=== PATIENT | female | born 1995 | race Two or more races ===

== ENCOUNTER 2018-03-08 21:00 | Inpatient (IN) | payer BC ==
--- NOTE | 2018-03-08 11:09 | PDOC.LDHP ---
Labor and Delivery H&P Chief complaint: scheduled induction HPI: 22 yo G1 @ 40w1d by 11 week CRL who presents for EIOL. achieved with Femara, otherwise, benign antepartum course. Current gestational age (weeks): 40 Due date: 03/08/18 Dating criteria: first trimester ultrasound Grav: 1 Para: 0 Current complications: none Abnormal US findings: No Past Medical History: Denies Current medications: pre- vitamins Previous surgical history: none Allergies/Adverse Reactions: Allergies Allergy/AdvReac Type Severity Reaction Status Date / Time No Known Allergies Allergy Unverified 03/09/18 02:12 Social history: none - Physical Exam Vital signs reviewed and normal: yes General: NAD Heart: RRR Lungs: nonlabored breathing Abdomen: gravid Extremeties: no edema FHT: category 1 (130s, mod denilson, +accels, no decels) [place] contractions every: q1-5 min - Vaginal Exam cm dilated: 2 (cephalic; Cook balloon placed 60/60 cc) Effacement: 50% Station: -2 - OB Labs Blood type: A RH: positive Antibody Screen: negative HIV: negative RPR: negative HEPSAg: negative 1 hour GCT: negative GBS: negative Urine drug screen: not done Rubella: immune Additional Labs: SS wnl PAP wnl - Assessment L&D Assessment: elective induction at term - Plan Plan: admit to L&D, cervical ripening (s/p cytotec x 1, cook balloon placed and will start low dose pitocin.), informed consent obtained, anesthesia consult for pain management
[2018-03-09 02:19] VITALS: BMI 27.8
[2018-03-09] MEDS ORDERED: Acetaminophen 500 MG TAB PO PRN (02:19)
[2018-03-09] MEDS ORDERED: Ondansetron PF 4 MG/2 ML Vial IVP PRN ×3 (02:19→14:51)
[2018-03-09] MEDS ORDERED: Butorphanol Tartrate 1 MG/ML VIAL SLOW IVP PRN (02:19)
[2018-03-09] MEDS ORDERED: HYDROcodone/Acetaminophen 5/325 mg Tablet PO PRN ×5 (02:19→22:46)
[2018-03-09] MEDS ORDERED: Misoprostol 200 MCG TAB PR PRN (02:19)
[2018-03-09] MEDS ORDERED: Lidocaine 1% (PF) 30 ML VIAL SC PRN (02:19)
[2018-03-09] MEDS ORDERED: NS / Oxytocin 40 units/1000ml 1,000 ML IV PRN (02:19)
[2018-03-09] MEDS ORDERED: Promethazine HCl 25 MG/ML VIAL IM PRN ×3 (02:19→14:51)
[2018-03-09] MEDS ORDERED: Diphenoxylate HCl/Atropine Tablet PO PRN (02:19)
[2018-03-09] MEDS ORDERED: Ibuprofen 800 MG TAB PO PRN (02:19)
[2018-03-09] MEDS ORDERED: Carboprost 250 MCG/ML AMP IM PRN (02:19)
[2018-03-09] MEDS ORDERED: Methylergonovine 0.2 MG/ML VIAL IM PRN (02:19)
[2018-03-09] MEDS: Lactated Ringer's 1,000 ML IV SCH ×3 (02:46→17:30)
[2018-03-09 02:49] LABS: Hemoglobin 12.1 g/dL (12.0-16.0); Mean Corpuscular HGB CONC 33.7 g/dL (32.0-36.0); Mean Corpuscular Hemoglobin 28.6 pg (27.0-31.0); Mean Corpuscular Volume 84.6 fL (78.0-98.0); Mean Platelet Volume 8.6 fL (7.4-10.4); Platelet Count 214 thou/uL (130-400); RBC Distribution Width 12.5 % (11.5-14.5); Red Blood Cell (RBC) Count 4.23 mill/uL (4.20-5.40); White Blood Cell (WBC) Count 8.7 thou/uL (4.8-10.8)
[2018-03-09] MEDS: Misoprostol 100 MCG TAB VAG SCH ×8 (02:52→23:52)
[2018-03-09 03:27] LABS: HBSAg Index 0.21 S/CO (0-0.99); HIV (1/2) Antibody/Antigen Non-Reactive (NonReactive); HIV 1/2 INDEX 0.14 S/CO (<1.00); Hep B Surf Ag Non-Reactive S/CO (NonReactive)
[2018-03-09 04:58] LABS: Syphilis Antibody Nonreactive (Nonreactive); Syphilis Antibody Index 0.04 S/CO (<1.00 Non-Reactive)
[2018-03-09] MEDS ORDERED: NS w/ Oxytocin 10 units 500 ML IV SCH (06:00)
[2018-03-09] MEDS ORDERED: Methylergonovine 0.2 MG/ML VIAL ONE (13:03)
[2018-03-09] MEDS ORDERED: CEFAZOLIN 1 GM VIAL ONE (13:10)
[2018-03-09 13:16] LABS: Analyzer IN Cardio OR; Base Excess (BEa) -10.3 mEq/L (-2.0 to +3.0)
[2018-03-09] MEDS ORDERED: Azithromycin 500 MG in Sodium Chloride 0.9% 250 ML 250 ML IVPB SCH (13:30)
[2018-03-09] MEDS ORDERED: Fentanyl 100 MCG/2 ML VIAL ONE ×2 (13:31→13:52)
--- NOTE | 2018-03-09 13:34 | PDOC.OPDEL ---
OB Operative/Delivery Note Delivery Dr/Surgeon: Mildred Escoto DO Pre-Delivery Diagnosis: elective induction Procedure/Post Delivery Dx: primary low transverse CS (STAT) Weeks gestation: 40 Anesthesia: other (general) - Findings A Sex: male - 1 min: 9 - 5 min: 9 - Additional Findings/Plan Placenta delivered: spontaneous findings: low transverse hysterotomy with extension, normal uterus, normal tubes, normal ovaries Estimated blood loss: QBL 624 mL Compilations/Other Findings: Cord prolapse after AROM requiring emergent PLTCS in cephalic presentation, OP position. Normal appearing placenta Clear amniotic fluid Immediate cry up delivery of infant Uterine atony after delivery due to general anesthesia, resolved with pitocin and methergine. Post delivery plan: routine recovery
[2018-03-09] MEDS ORDERED: Naloxone HCl 0.4 mg/ml Vial IV PRN ×2 (14:29→14:51)
[2018-03-09] MEDS ORDERED: fentaNYL Citrate/PF 2,000 MCG in Sodium Chloride 0.9% 60 ML IV PRN ×2 (14:29→14:51)
[2018-03-09] MEDS ORDERED: diphenhydrAMINE 50 MG/ML VIAL IM/IV PRN (14:29)
[2018-03-09] MEDS ORDERED: Zolpidem Tartrate 5 MG TAB PO PRN ×2 (14:29→14:51)
[2018-03-09] MEDS ORDERED: diphenhydrAMINE 25 MG CAP PO PRN ×3 (14:29→14:51)
[2018-03-09] MEDS ORDERED: Bisacodyl 10 MG SUPP PR PRN (14:42)
[2018-03-09] MEDS ORDERED: Ibuprofen 800 MG TAB PO SCH ×2 (14:42→15:15)
[2018-03-09] MEDS ORDERED: Ondansetron HCl/PF 4 MG/2 ML Vial IVP PRN (14:51)
[2018-03-09] MEDS ORDERED: HYDROmorphone 2 MG/ML VIAL SLOW IVP PRN (14:51)
[2018-03-09] MEDS ORDERED: Meperidine HCl/PF 25 MG/ML VIAL SLOW IVP PRN (14:51)
[2018-03-09] MEDS ORDERED: L&D-Morphine 4 MG/ML VIAL SLOW IVP PRN (14:51)
[2018-03-09] MEDS ORDERED: diphenhydrAMINE 50 MG/ML VIAL IVP PRN (14:51)
[2018-03-09] MEDS ORDERED: diphenhydrAMINE 50 MG/ML VIAL IM PRN (14:51)
[2018-03-09] MEDS ORDERED: Ketorolac Tromethamine 30 MG/ML VIAL IVP SCH ×2 (15:00→18:35)
[2018-03-09] MEDS ORDERED: Communication Order-Pharmacy FS SCH (15:00)
[2018-03-09] MEDS ORDERED: PROPOFOL 200 MG/20 ML VIAL ONE (15:02)
[2018-03-09] MEDS ORDERED: Succinylcholine Chloride 20 MG/ML 10 ml SYRINGE FS ONE (15:02)
[2018-03-09 16:28] LABS: #Eosinphils 0.1 thou/uL (0.0-0.7); #Lymphocytes 1.4 thou/uL (1.20-3.40); #Monocytes 0.6 thou/uL (0.11-0.59); #Neutrophils 14.7 thou/uL (1.40-6.50); %Basophils 0.1 % (0.0-1.0); %Eosinophils 0.3 % (0.0-10.0); %Lymphocytes 8.2 % (21.0-51.0); %Monocytes 3.6 % (0.0-10.0); %Neutrophils 87.8 % (42.0-75.0); Hemoglobin 12.4 g/dL (12.0-16.0); Mean Corpuscular Hemoglobin 29.1 pg (27.0-31.0); Mean Corpuscular Volume 85.6 fL (78.0-98.0); Mean Platelet Volume 8.7 fL (7.4-10.4); Platelet Count 189 thou/uL (130-400); RBC Distribution Width 12.6 % (11.5-14.5); Red Blood Cell (RBC) Count 4.25 mill/uL (4.20-5.40); White Blood Cell (WBC) Count 16.8 thou/uL (4.8-10.8)
[2018-03-09] MEDS ORDERED: Ketorolac Tromethamine 30 MG/ML VIAL ONE (17:13)
[2018-03-09] MEDS ORDERED: Fentanyl 100 MCG/2 ML VIAL SLOW IVP SCH (18:35)
[2018-03-09] MEDS: Ferrous Sulfate 325 MG TAB PO SCH (21:47)
[2018-03-09] MEDS: Ibuprofen 800 MG TAB PO SCH (23:52)
[2018-03-09] MEDS: Docusate Calcium (SURFAK) 240 MG CAP PO SCH (23:52)
--- NOTE | 2018-03-10 02:03 | OP ---
DATE OF PROCEDURE: 03/09/2018 PREOPERATIVE DIAGNOSES: 1. 40-week 1-day intrauterine . 2. Elective induction. 3. Cord prolapse. POSTOPERATIVE DIAGNOSES: 1. 40-week 1-day intrauterine . 2. Elective induction. 3. Cord prolapse. PROCEDURE PERFORMED: Emergent primary low transverse delivery. SURGEON: Mildred Escoto DO INSPECTOR GOLF BALL: Manuel Aguillon DO, MS COMPLICATIONS: None. ANESTHESIA: General. QUANTITATIVE BLOOD LOSS: 624 mL. FINDINGS: Cord prolapse noted on artificial rupture of membranes. Findings intraoperatively were infant in cephalic presentation with immediate cry upon delivery. Apgars 9/9. Normal-appearing placenta. Clear amniotic fluid. Normal -appearing uterus, fallopian tubes, and ovaries bilaterally. INDICATIONS FOR THE PROCEDURE: Ms. Deon Simental is a 22-year-old G1, P0, at 40 weeks and 1 day, who underwent an elective induction. The patient had undergone cervical ripening and was in active portion of labor. She underwent artificial rupture of membranes, and at this time, there was noted to be a cord prolapse at the time of the membrane rupture. The nurse and additional provider were called promptly to the room. The patient was transferred to the operating room. A nurse changed position with me to elevate the head off the umbilical cord. Then, the patient was taken back to the operating room for a stat section. DESCRIPTION OF PROCEDURE: The patient was brought to the operating room. She was placed in supine position. A Jordan catheter was placed. Her abdomen was prepped and draped in the emergent fashion. She underwent a general anesthesia. A Pfannenstiel skin incision was made using the scalpel and this was carried down to the underlying fascial layer. The fascia was then incised in the midline using the scalpel and extended bilaterally using blunt dissection. The rectus abdominis muscles were bluntly, and peritoneum was then entered bluntly and extended using blunt dissection. Bladder blade was inserted. A low-transverse hysterotomy was made using the scalpel and this was extended using blunt dissection. The infant was delivered in cephalic presentation. cried immediately upon delivery. The infant's cord was clamped and cut. was handed to the awaiting Neonatology Team. Cord segment was collected for cord gases and the placenta was delivered spontaneously intact. The uterus was cleared of all clot and debris. The uterus was exteriorized from the abdomen. The hysterotomy was closed in a running locking fashion and also included an imbrication layer. The uterus was atonic during portions of the closure. Therefore, Pitocin was given per usual protocol and also IM Methergine 0.2 mg was also given. With these interventions, the uterus had increased tone and the bleeding was decreased. The uterus was then placed back into the abdomen. The pelvis was then irrigated and cleared of all clot and debris. The hysterotomy was evaluated and hemostatic. The fascia was then closed in a running fashion using 0 PDS. The subcutaneous layer was copiously irrigated and hemostatic using the Bovie. The subcutaneous layer was closed using 3-0 Vicryl and the skin was closed using 4-0 Monocryl and Dermabond. The patient was extubated without difficulty. There were no complications. Everything was discussed with the patient's family. All counts were correct x3. Mother and baby will be transferred to a routine recovery room. The patient was given Ancef and azithromycin postoperatively for surgical prophylaxis, this is not able to be done prior to the incision. Job ID: [id number] [facility]
[2018-03-10] MEDS: Lactated Ringer's 1,000 ML IV SCH ×3 (05:29→17:57)
[2018-03-10] MEDS: Misoprostol 100 MCG TAB VAG SCH ×4 (05:29→21:48)
[2018-03-10] MEDS: Ibuprofen 800 MG TAB PO SCH ×3 (06:07→21:51)
[2018-03-10] MEDS: Simethicone Chewable 80 MG TAB PO PRN ×2 (06:08→18:23)
[2018-03-10 06:57] LABS: #Eosinphils 0.1 thou/uL (0.0-0.7); #Lymphocytes 1.8 thou/uL (1.20-3.40); #Monocytes 0.6 thou/uL (0.11-0.59); #Neutrophils 10.6 thou/uL (1.40-6.50); %Basophils 0.1 % (0.0-1.0); %Lymphocytes 13.9 % (21.0-51.0); %Monocytes 4.3 % (0.0-10.0); %Neutrophils 80.8 % (42.0-75.0); Hemoglobin 9.5 g/dL (12.0-16.0); Mean Corpuscular HGB CONC 32.3 g/dL (32.0-36.0); Mean Corpuscular Hemoglobin 27.9 pg (27.0-31.0); Mean Corpuscular Volume 86.2 fL (78.0-98.0); Mean Platelet Volume 8.8 fL (7.4-10.4); Platelet Count 185 thou/uL (130-400); RBC Distribution Width 12.4 % (11.5-14.5); Red Blood Cell (RBC) Count 3.42 mill/uL (4.20-5.40); White Blood Cell (WBC) Count 13.2 thou/uL (4.8-10.8)
--- NOTE | 2018-03-10 08:11 | PDOC.PP ---
Post Progress Note Post Day #: 1 Subjective: Reports moderate pain, Using COMMUNITY ENGAGEMENT SPECIALIST. Minimal lochia. Breast feeding, however, not attaching well yet. Jordan recently removed. PO intake tolerated: yes Flatus: no Ambulation: no Vital Signs (12 hours) Temp Pulse Resp BP Pulse Ox 03/10/18 04:05 97.5 F L 104 H 18 119/78 03/09/18 23:55 98.0 F 91 18 114/67 03/09/18 20:25 98.4 F 107 H 16 124/74 97 Weight Weight 167 lb - Physical Examination General: NAD Cardiovascular: RRR Respiratory: non-labored breathing Abdominal: no distention, appropriately TTP Fundus firm & at: below umbilicus Extremities: negative homans (B) Skin: CS incision dry & intact, no rash Neurological: no gross focal deficits Psychiatric: A&Ox3, normal affect Result Diagrams: 03/10/18 06:02 Additional Labs: Post Labs Blood Type A POSITIVE 03/09/18 02:39 Hep Bs Antigen Non-Reactive S/CO (NonReactive) 03/09/18 02:39 (1) delivery delivered Code(s): O82 - ENCOUNTER FOR DELIVERY WITHOUT INDICATION Status: Acute (2) Anemia Code(s): D64.9 - ANEMIA, UNSPECIFIED Status: Acute Qualifiers: Other causes of anemia: acute posthemorrhagic - Assessment/Plan PPD2 Mild tachycardia noted. anemia as expected PP. Suspect due to pain. Will continue COMMUNITY ENGAGEMENT SPECIALIST until 24 hrs after ad transition to PO. Advised to ambulate and will give MOM today. Repeat CBC today. Plan for possible d/c tomorrow.
[2018-03-10] MEDS ORDERED: Milk Of Magnesia 30 ML UDCUP PO SCH (09:00)
[2018-03-10] MEDS: Prenatal Vitamin 1 TAB PO SCH (09:06)
[2018-03-10] MEDS: Docusate Calcium (SURFAK) 240 MG CAP PO SCH ×2 (09:06→21:49)
[2018-03-10] MEDS: Ferrous Sulfate 325 MG TAB PO SCH ×2 (09:06→21:51)
[2018-03-10] MEDS ORDERED: HYDROcodone/Acetaminophen 5/325 mg Tablet PO PRN (14:55)
[2018-03-10 15:35] LABS: #Eosinphils 0.1 thou/uL (0.0-0.7); #Lymphocytes 1.9 thou/uL (1.20-3.40); #Monocytes 0.5 thou/uL (0.11-0.59); #Neutrophils 10.3 thou/uL (1.40-6.50); %Basophils 0.2 % (0.0-1.0); %Eosinophils 0.9 % (0.0-10.0); %Lymphocytes 14.7 % (21.0-51.0); %Neutrophils 80.3 % (42.0-75.0); Hemoglobin 10.8 g/dL (12.0-16.0); Mean Corpuscular HGB CONC 33.4 g/dL (32.0-36.0); Mean Corpuscular Volume 86.7 fL (78.0-98.0); Mean Platelet Volume 7.9 fL (7.4-10.4); Platelet Count 172 thou/uL (130-400); RBC Distribution Width 12.6 % (11.5-14.5); Red Blood Cell (RBC) Count 3.74 mill/uL (4.20-5.40); White Blood Cell (WBC) Count 12.8 thou/uL (4.8-10.8)
[2018-03-10] MEDS: HYDROcodone/Acetaminophen 5/325 mg Tablet PO PRN (20:00)
[2018-03-11] MEDS: Misoprostol 100 MCG TAB VAG SCH ×4 (04:59→12:00)
[2018-03-11] MEDS: Lactated Ringer's 1,000 ML IV SCH ×2 (05:00→12:00)
[2018-03-11] MEDS: Ibuprofen 800 MG TAB PO SCH ×2 (06:22→14:17)
--- NOTE | 2018-03-11 07:28 | PDOC.PP ---
Post Progress Note Post Day #: 2 Subjective: Overall doing well. Pain much better. Minimal lochia. Ambulating, voiding, tolerating diet, passing flatus and pain controlled. PO intake tolerated: yes Flatus: yes Ambulation: yes Vital Signs (12 hours) Temp Pulse Resp BP Pulse Ox 03/11/18 04:40 97 16 114/61 97 03/11/18 00:45 97.6 F 92 18 128/65 03/10/18 20:30 98.0 F 100 16 127/84 98 Weight Weight 167 lb - Physical Examination General: NAD Cardiovascular: RRR Respiratory: non-labored breathing Abdominal: no distention, appropriately TTP Fundus firm & at: below umbilicus Extremities: negative homans (B) Skin: CS incision dry & intact, no rash Neurological: no gross focal deficits Psychiatric: A&Ox3, normal affect Result Diagrams: 03/10/18 15:21 Additional Labs: Post Labs Blood Type A POSITIVE 03/09/18 02:39 Hep Bs Antigen Non-Reactive S/CO (NonReactive) 03/09/18 02:39 (1) delivery delivered Code(s): O82 - ENCOUNTER FOR DELIVERY WITHOUT INDICATION Status: Acute (2) Anemia Code(s): D64.9 - ANEMIA, UNSPECIFIED Status: Acute Qualifiers: Other causes of anemia: acute posthemorrhagic - Assessment/Plan PPD2 VSSAF. Breast feeding. Tachycardia resolved. Pain controlled. CBC stable. Meeting requirements for d/c home. D/C with . Meds sent to pharmacy.
[2018-03-11 08:17] VITALS: BP 112/59; TEMP 98.3
[2018-03-11] MEDS: Prenatal Vitamin 1 TAB PO SCH (09:34)
[2018-03-11] MEDS: Docusate Calcium (SURFAK) 240 MG CAP PO SCH (09:34)
[2018-03-11] MEDS: Ferrous Sulfate 325 MG TAB PO SCH (14:17)
[2018-03-11] MEDS: HYDROcodone/Acetaminophen 5/325 mg Tablet PO PRN (14:20)
== END 2018-03-11 13:30 | disposition home or self-care (01) | DRG 787 ==
LOC: L&D 03-09 01:05 → 3SW 03-09 17:47
PROVIDERS: ADMIT Obstetrics & Gynecology; ATTEND Obstetrics & Gynecology
PROC: 10D00Z1 Extraction of Products of Conception, Low, Open Approach (ICD-10-PCS; principal; 2018-03-09)
DX: O48.0 Post-term pregnancy (principal); D62 Acute posthemorrhagic anemia; O90.81 Anemia of the puerperium; R00.0 Tachycardia, unspecified; O69.0XX0 Labor and delivery complicated by prolapse of cord, not applicable or unspecified; O99.89 Other specified diseases and conditions complicating pregnancy, childbirth and the puerperium; Z3A.40 40 weeks gestation of pregnancy; Z37.0 Single live birth
CPT/HCPCS: 36415; 51702; 82805; 85025; 85027; 86780; 86850; 86900; 86901; 87340; 87389; C1726; J0456; J0690; J1885; J2210; J2405; J2704; J3010; J7050